=== PATIENT | male | born 1985 | race African-American/Black ===

== ENCOUNTER 2020-03-26 13:01 | Inpatient (IN) | payer OTHER ==
[2020-03-26 14:55] LABS: BASO % 0.3 % (0-2.0); EOS % 0.5 % (0-4.5); HEMATOCRIT 45.3 % (35.4-49); HEMOGLOBIN 15.5 GM/dL (11.7-16.9); LYMPH % 16.9 % (8-40); MCH 31.2 pg (25.7-33.7); MCHC 34.1 g/dl (32.0-35.9); MEAN CELL VOLUME 91.5 fl (80-96); MEAN PLT VOLUME 9.4 fl (7.5-11.1); MONO % 7.5 % (3.8-10.2); NEUT % 74.8 % (42.8-82.8); PLATELET COUNT 239 K/MM3 (134-434); RBC 4.95 M/mm3 (4.00-5.60); RDW 13.4 % (11.9-15.9); WHITE BLOOD COUNT 6.3 K/mm3 (4.0-10.0)
[2020-03-26 17:05] LABS: CHLORIDE 107 mmol/L (98-107); POTASSIUM 5.2 mmol/L (3.5-5.1); SODIUM 139 mmol/L (136-145)
[2020-03-26 17:07] LABS: ALBUMIN 4.5 g/dl (3.4-5.0); ANION GAP 6 MMOL/L (8-16); BLOOD UREA NITROGEN 10.8 mg/dL (7-18); CALCIUM 9.8 mg/dL (8.5-10.1); CO2 26 mmol/L (21-32); GLUCOSE,RANDOM 96 mg/dL (74-106)
[2020-03-26 17:10] LABS: CREATININE 1.2 mg/dL (0.55-1.3); SGOT/AST 61 U/L (15-37); SGPT/ALT 37 U/L (13-61)
[2020-03-26 17:12] LABS: BILIRUBIN,TOTAL 0.6 mg/dL (0.2-1)
[2020-03-26 17:13] LABS: ALK PHOS 57 U/L (45-117)
[2020-03-26] MEDS ORDERED: ASPIRIN 81 MG CHEWABLE TABLETS PO ONE (17:14)
[2020-03-26] MEDS ORDERED: ASPIRIN 325 MG TABLET PO ONE (17:21)
[2020-03-26] MEDS ORDERED: ATORVASTATIN CA 80 MG TABLET (FP) PO ONE (17:21)
[2020-03-26 17:24] LABS: URINE AMPHETAMINES NEGATIVE ng/ml (CUTOFF=500); URINE BARBITURATES NEGATIVE ng/ml (CUTOFF=200)
[2020-03-26 17:25] LABS: COCAINE, UR NEGATIVE ng/ml (CUTOFF=300); METHADONE, UR NEGATIVE ng/ml (CUTOFF=300); OPIATES, URI NEGATIVE ng/ml (CUTOFF=300); PHENCYCLIDINE,URINE NEGATIVE ng/ml (CUTOFF=25)
[2020-03-26 17:26] LABS: URINE BENZODIAZEPINES NEGATIVE ng/ml (CUTOFF=200)
[2020-03-26] MEDS ORDERED: ASPIRIN 325 MG ENTERIC COATED TABLET (FP) ONE (17:50)
[2020-03-26] MEDS ORDERED: ATORVASTATIN CA 80 MG TABLET (FP) ONE (17:50)
[2020-03-26 18:30] LABS: POTASSIUM 4.4 mmol/L (3.5-5.1)
[2020-03-26] MEDS ORDERED: DEXTROSE 5%-NORMAL SALINE 1,000 ML IV SCH (18:30)
[2020-03-26 18:32] LABS: CALCIUM 9.3 mg/dL (8.5-10.1)
[2020-03-26 18:33] LABS: ALBUMIN 4.3 g/dl (3.4-5.0); BLOOD UREA NITROGEN 9.6 mg/dL (7-18)
[2020-03-26 18:36] LABS: CREATININE 1.1 mg/dL (0.55-1.3)
[2020-03-26 18:38] LABS: BILIRUBIN,TOTAL 0.8 mg/dL (0.2-1); TOT PROT 7.6 g/dl (6.4-8.2)
[2020-03-26 19:27] LABS: INR 1.03 (0.83-1.09); PROTHROMBIN TIME (PATIENT) 12.6 SEC (9.7-13.0)
[2020-03-26 19:29] LABS: ACTIVATED PTT 19.4 SECONDS (25.2-36.5)
[2020-03-26 19:37] LABS: CHOLESTEROL 134 mg/dL (50-200)
[2020-03-26 19:39] LABS: LDL CHOLESTEROL (ONLY SJRH) 66 mg/dL (5-100); TRIGLYCERIDES 33 mg/dL (0-150)
[2020-03-26 19:41] LABS: HDL CHOLESTEROL 67 mg/dL (40-60)
[2020-03-27] MEDS ORDERED: ACETAMINOPHEN 325 MG TABLET (FP) PO ONE (01:13)
[2020-03-27 03:47] VITALS: BMI 25.5
[2020-03-27 08:00] LABS: BASO % 0.3 % (0-2.0); EOS % 1.1 % (0-4.5); HEMATOCRIT 43.4 % (35.4-49); HEMOGLOBIN 14.7 GM/dL (11.7-16.9); LYMPH % 23.7 % (8-40); MCH 31.1 pg (25.7-33.7); MCHC 33.8 g/dl (32.0-35.9); MEAN PLT VOLUME 9.2 fl (7.5-11.1); MONO % 9.9 % (3.8-10.2); PLATELET COUNT 204 K/MM3 (134-434); RBC 4.71 M/mm3 (4.00-5.60); RDW 13.1 % (11.9-15.9); WHITE BLOOD COUNT 5.3 K/mm3 (4.0-10.0)
[2020-03-27 08:05] LABS: INR 1.12 (0.83-1.09); PROTHROMBIN TIME (PATIENT) 13.5 SEC (9.7-13.0)
[2020-03-27 08:07] LABS: ACTIVATED PTT 26.9 SECONDS (25.2-36.5)
[2020-03-27 08:29] LABS: POTASSIUM 3.6 mmol/L (3.5-5.1)
[2020-03-27 08:33] LABS: CALCIUM 9.1 mg/dL (8.5-10.1)
[2020-03-27 08:34] LABS: ALBUMIN 3.9 g/dl (3.4-5.0); BLOOD UREA NITROGEN 9.9 mg/dL (7-18); MAGNESIUM 2.3 mg/dL (1.8-2.4)
[2020-03-27 08:35] LABS: PHOSPHOROUS 4.7 mg/dL (2.5-4.9)
[2020-03-27 08:37] LABS: BILIRUBIN,TOTAL 0.9 mg/dL (0.2-1); TOT PROT 7.2 g/dl (6.4-8.2)
[2020-03-27] MEDS: ENOXAPARIN NA (PORCINE) 60 MG/0.6 ML DISP.SYRIN SQ SCH (09:48)
[2020-03-27] MEDS: ASPIRIN COATED 81 MG TABLET.EC PO SCH (09:48)
[2020-03-27] MEDS: ACETAMINOPHEN 325 MG TABLET (FP) PO PRN ×2 (13:09→21:03)
[2020-03-27] MEDS: ATORVASTATIN CA 80 MG TABLET (FP) PO SCH (21:03)
[2020-03-28 07:20] LABS: BASO % 0.5 % (0-2.0); EOS % 1.4 % (0-4.5); HEMATOCRIT 43.3 % (35.4-49); HEMOGLOBIN 14.7 GM/dL (11.7-16.9); LYMPH % 35.7 % (8-40); MCH 31.2 pg (25.7-33.7); MCHC 33.9 g/dl (32.0-35.9); MEAN CELL VOLUME 92.3 fl (80-96); MEAN PLT VOLUME 9.3 fl (7.5-11.1); MONO % 9.7 % (3.8-10.2); NEUT % 52.7 % (42.8-82.8); PLATELET COUNT 207 K/MM3 (134-434); RDW 13.4 % (11.9-15.9); WHITE BLOOD COUNT 4.7 K/mm3 (4.0-10.0)
[2020-03-28 07:40] LABS: POTASSIUM 3.8 mmol/L (3.5-5.1)
[2020-03-28 07:52] LABS: ALBUMIN 3.8 g/dl (3.4-5.0); BLOOD UREA NITROGEN 11.4 mg/dL (7-18); MAGNESIUM 2.2 mg/dL (1.8-2.4)
[2020-03-28 07:55] LABS: PHOSPHOROUS 4.1 mg/dL (2.5-4.9)
[2020-03-28 07:56] LABS: BILIRUBIN,TOTAL 0.9 mg/dL (0.2-1)
[2020-03-28 07:57] LABS: TOT PROT 6.9 g/dl (6.4-8.2)
[2020-03-28] MEDS: ASPIRIN COATED 81 MG TABLET.EC PO SCH (09:21)
[2020-03-28] MEDS: ENOXAPARIN NA (PORCINE) 60 MG/0.6 ML DISP.SYRIN SQ SCH (09:23)
[2020-03-28] MEDS: ACETAMINOPHEN 325 MG TABLET (FP) PO PRN (14:50)
[2020-03-28] MEDS: ATORVASTATIN CA 80 MG TABLET (FP) PO SCH (21:37)
[2020-03-29] MEDS: ASPIRIN COATED 81 MG TABLET.EC PO SCH (10:19)
[2020-03-29] MEDS: ENOXAPARIN NA (PORCINE) 60 MG/0.6 ML DISP.SYRIN SQ SCH (10:19)
[2020-03-29] MEDS ORDERED: ACETAMINOPHEN 325 MG TABLET (FP) PO PRN (13:21)
[2020-03-29 14:07] LABS: DRVVT - 37.4 sec (0.0-47.0)
[2020-03-29 14:43] VITALS: TEMP 98.2
[2020-03-29 15:07] LABS: PROTEIN S FREE 52 % (57-157)
[2020-03-29 19:04] VITALS: BP 117/77; PULSE 83
[2020-03-29] MEDS ORDERED: ATORVASTATIN CA 80 MG TABLET (FP) PO SCH (22:00)
[2020-03-30] MEDS ORDERED: ASPIRIN COATED 81 MG TABLET.EC PO SCH (10:00)
[2020-03-30] MEDS ORDERED: ENOXAPARIN NA (PORCINE) 40 MG/0.4 ML DISP.SYRIN SQ SCH (10:00)
== END 2020-03-29 18:50 | DRG 45 ==
LOC: JER 13:01 → JERBED 17:52 → J4S 03-27 00:34
PROVIDERS: ATTEND Student in an Organized Health Care Education/Training Program
DX: I63.9 Cerebral infarction, unspecified (principal); I69.354 Hemiplegia and hemiparesis following cerebral infarction affecting left non-dominant side; E05.90 Thyrotoxicosis, unspecified without thyrotoxic crisis or storm
CPT/HCPCS: 36415; 70450-TC; 70496-TC; 70498-TC; 70547-TC; 70551-TC; 71045-TC-FY; 80053; 80061; 80307; 81240; 81241; 82550; 82553; 83036; 83721; 83735; 84100; 84439; 84443; 84484; 85025; 85300; 85303; 85305; 85306; 85610; 85613; 85730; 85732; 86780; 93005; 93010; 93306-TC; 93880-TC; 93971-TC; 97116-GP; 97161-GP; 99285-25; C9803; U0003